=== PATIENT | female | born 1945 | race African-American/Black ===

== ENCOUNTER 2016-11-04 12:08 | Inpatient (IN) | payer MEDICARE, MEDICAID ==
[~2016-11-04] VITALS: Ht 167.6 cm; Wt 67.1 kg
[~2016-11-04 12:08] MED LIST: BUDE6HFA; IPRA4AER; NEBI5TAB3; VALS1TAB31
[2016-11-04] MEDS ORDERED: ALBUTEROL (0.083%) 2.5MG/3ML NEB HHN STA (13:52)
[2016-11-04] MEDS ORDERED: IPRATROPIUM BROMIDE (0.02%) 0.5MG/2.5ML NEB HHN STA (13:52)
[2016-11-04] MEDS ORDERED: MAGNESIUM 2 G PREMIX 50 ML IV STA (13:52)
[2016-11-04] MEDS ORDERED: DEXAMETHASONE 10MG/ML 1ML VIAL IV ONE (14:00)
[2016-11-04 14:11] LABS: BASOPHILS % 1.1 % (0.0-2.0); EOSINOPHILS % 2.5 % (0.0-5.0); HEMATOCRIT. 34.8 % (36.0-48.0); HEMOGLOBIN. 11.3 g/dL (12.0-16.0); LYMPHOCYTES % 37.6 % (20.0-50.0); MEAN CORPUSCULAR VOLUME 91.9 fL (81.0-99.0); MEAN PLATELET VOLUME 7.8 fl (7.4-10.4); MONOCYTES % 7.8 % (2.0-8.0); PLATELET 316 x1000/uL (130-400); RED BLOOD CELL COUNT 3.78 mill/uL (4.2-5.4); RED CELL DISTRIBUTION WIDTH 13.2 % (11.6-14.6)
[2016-11-04 14:18] LABS: INR 1.1; PARTIAL THROMBOPLASTIN TIME 38.2 sec (24.0-34.0); PROTHROMBIN TIME 11.9 sec
[2016-11-04] MEDS ORDERED: ALBUTEROL (0.083%) 2.5MG/3ML NEB ONE (14:21)
[2016-11-04] MEDS ORDERED: IPRATROPIUM BROMIDE (0.02%) 0.5MG/2.5ML NEB ONE (14:22)
[2016-11-04 14:28] LABS: CARBON DIOXIDE 34 mEq/L (21-32); CHLORIDE 98 mEq/L (98-107); TROPONIN I < 0.02 ng/mL (0.00-0.04)
[2016-11-04] MEDS ORDERED: SODIUM CHLORIDE 0.9% 1,000 ML IV ONE (15:56)
[2016-11-04] MEDS ORDERED: LORAZEPAM 0.5MG TABLET PO PRN (16:00)
[2016-11-04] MEDS ORDERED: LEVOFLOXACIN 500MG PREMIX 100 ML IV ONE (16:00)
[2016-11-04] MEDS ORDERED: MAGNESIUM/ALUMINUM HYDROXIDE/SIMETHICONE 30ML UDC PO PRN (16:00)
[2016-11-04] MEDS ORDERED: ONDANSETRON HCL 4MG/2ML VIAL IV PRN (16:00)
[2016-11-04] MEDS ORDERED: DOCUSATE SODIUM 100MG CAPSULE PO PRN (16:00)
[2016-11-04] MEDS ORDERED: CLONIDINE 0.1MG TABLET PO PRN (16:00)
[2016-11-04] MEDS ORDERED: IPRATROPIUM/ALBUTEROL 0.5-3(2.5)MG/3ML NEB INH PRN (16:00)
[2016-11-04 19:11] VITALS: BP 165/63
[2016-11-04 20:00] VITALS: BP 116/67
[2016-11-04] MEDS: ENOXAPARIN 40MG/0.4ML SYR SUBCUT SCH (20:00)
[2016-11-04] MEDS: HYDROCHLOROTHIAZIDE 12.5MG CAPSULE PO SCH ×2 (20:00→20:27)
[2016-11-04] MEDS: NEBIVOLOL HCL 5 MG TABLET PO SCH (20:27)
[2016-11-04] MEDS: ACETAMINOPHEN 325MG TABLET PO PRN (20:27)
[2016-11-04 21:04] LABS: CLARITY URINE CLEAR (CLEAR); COLOR URINE YELLOW (YELLOW); GLUCOSE URINE NEGATIVE (NEGATIVE); KETONES URINE 2+ (NEGATIVE); LEUKOCYTE ESTERASE URINE NEGATIVE (NEGATIVE); NITRITE URINE NEGATIVE (NEGATIVE); OCCULT BLOOD URINE TRACE (NEGATIVE); PROTEIN URINE NEGATIVE (NEGATIVE); SPECIFIC GRAVITY URINE 1.016 (1.005-1.030); UROBILINOGEN URINE 0.2 E.U./dL (0.2-1.0)
[2016-11-04 21:32] VITALS: BP 116/67
[2016-11-04] MEDS ORDERED: AMLO2.5T45 PO (21:38)
[2016-11-04 23:32] LABS: CREATINE KINASE MB FRACTION 5.4 ng/mL (0.5-3.6); TROPONIN I < 0.02 ng/mL (0.00-0.04)
[2016-11-05] VITALS: BP 111/56
[2016-11-05] MEDS: IPRATROPIUM/ALBUTEROL 0.5-3(2.5)MG/3ML NEB HHN SCH ×5 (00:52→22:54)
[2016-11-05 04:00] VITALS: BP 104/45
[2016-11-05] MEDS: BUDESONIDE 0.5MG/2ML NEB HHN SCH ×3 (04:08→22:54)
[2016-11-05 06:45] LABS: CREATINE KINASE MB FRACTION 4.9 ng/mL (0.5-3.6); TROPONIN I < 0.02 ng/mL (0.00-0.04)
[2016-11-05 08:00] VITALS: BP_SYST 131; BP_SYST 132; BP_DIAS 56
[2016-11-05] MEDS: NEBIVOLOL HCL 5 MG TABLET PO SCH (09:34)
[2016-11-05] MEDS: LOSARTAN POTASSIUM 25 MG TABLET PO SCH (09:34)
[2016-11-05] MEDS: HYDROCHLOROTHIAZIDE 12.5MG CAPSULE PO SCH (09:34)
[2016-11-05 12:12] VITALS: BP 105/47
[2016-11-05] MEDS: METHYLPREDNISOLONE SOD SUCC 40 MG/ML VIAL IV SCH ×2 (14:55→22:00)
[2016-11-05 16:30] VITALS: BP 110/62
[2016-11-05 20:00] VITALS: BP 107/49
[2016-11-05] MEDS: ENOXAPARIN 40MG/0.4ML SYR SUBCUT SCH (20:00)
[2016-11-05] MEDS: ACETAMINOPHEN 325MG TABLET PO PRN (23:31)
[2016-11-06] VITALS (25 sets, daily range): BP systolic 82–122; BP diastolic 39–61
[2016-11-06] MEDS: METHYLPREDNISOLONE SOD SUCC 40 MG/ML VIAL IV SCH ×3 (06:00→21:36)
[2016-11-06] MEDS: NEBIVOLOL HCL 5 MG TABLET PO SCH (08:30)
[2016-11-06] MEDS: LOSARTAN POTASSIUM 25 MG TABLET PO SCH (08:30)
[2016-11-06] MEDS: HYDROCHLOROTHIAZIDE 12.5MG CAPSULE PO SCH (08:31)
[2016-11-06] MEDS: BUDESONIDE 0.5MG/2ML NEB HHN SCH ×3 (10:00→20:08)
[2016-11-06] MEDS: IPRATROPIUM/ALBUTEROL 0.5-3(2.5)MG/3ML NEB HHN SCH ×2 (14:25→20:09)
[2016-11-06 15:51] LABS: BG BASE EXCESS 4.4 mmol/L (-2.0-2.0); BG CARBOXYHEMOGLOBIN 1.1 % (0.5-1.5); BG DEOXYHEMOGLOBIN 4.6 % (0.0-5.0); BG FRACTION INSPIRED OXYGEN 28; BG HCO3 ACT 37.8 mmol/L (22.0-26.0); BG METHEMOGLOBIN 0.3 % (0.0-1.5); BG OXYGEN SATURATION 95.3 % (92.0-98.5); BG PCO2 122.3 mmHg (35.0-45.0); BG PH 7.108 (7.350-7.450); BG PO2 86.5 mmHg (75.0-100.0); BG SAMPLE SITE RIGHT BRACHIAL; BG VENT MODE NASAL CANNULA
[2016-11-06 18:31] LABS: BG BASE EXCESS 4.1 mmol/L (-2.0-2.0); BG BILEVEL POS AIRWAY PRESSURE 18/8; BG CARBOXYHEMOGLOBIN 1.2 % (0.5-1.5); BG DEOXYHEMOGLOBIN 4.7 % (0.0-5.0); BG FRACTION INSPIRED OXYGEN 40; BG HCO3 ACT 35.8 mmol/L (22.0-26.0); BG METHEMOGLOBIN 0.3 % (0.0-1.5); BG OXYGEN SATURATION 95.2 % (92.0-98.5); BG OXYHEMOGLOBIN 93.8 % (94.0-97.0); BG PCO2 100.1 mmHg (35.0-45.0); BG PH 7.171 (7.350-7.450); BG PO2 81.8 mmHg (75.0-100.0); BG SAMPLE SITE RIGHT BRACHIAL; BG TOTAL HEMOGLOBIN 12.9 g/dL (12.0-18.0); BG VENT MODE MASK - BIPAP; BG VENT RATE 24 set
[2016-11-06] MEDS: ENOXAPARIN 40MG/0.4ML SYR SUBCUT SCH (20:21)
[2016-11-07] VITALS (79 sets, daily range): BP systolic 92–153; BP diastolic 34–83
[2016-11-07] MEDS: IPRATROPIUM/ALBUTEROL 0.5-3(2.5)MG/3ML NEB HHN SCH ×4 (01:49→20:14)
[2016-11-07] MEDS: METHYLPREDNISOLONE SOD SUCC 40 MG/ML VIAL IV SCH ×3 (05:08→22:01)
[2016-11-07 05:37] LABS: HEMATOCRIT 35.7 % (36.0-48.0); HEMOGLOBIN 11.3 g/dL (12.0-16.0); MEAN CORPUSCULAR HEMOGLOBIN 29.6 pg (28.0-32.0); MEAN CORPUSCULAR VOLUME 93.5 fL (81.0-99.0); PLATELET 351 x1000/uL (130-400); RED BLOOD CELL COUNT 3.82 mill/uL (4.2-5.4); RED CELL DISTRIBUTION WIDTH 13.1 % (11.6-14.6)
[2016-11-07] MEDS ORDERED: INSULIN REGULAR (HUMULIN R) 300UNITS/3ML SUBCUT ONE (07:00)
[2016-11-07] MEDS ORDERED: DEXTROSE 50% WATER 50ML SYRINGE IV ONE (07:00)
[2016-11-07] MEDS ORDERED: INSULIN REGULAR (HUMULIN R) 300UNITS/3ML IV SCH (07:00)
[2016-11-07] MEDS ORDERED: INSULIN REGULAR (HUMULIN R) UD 100 UNITS/ML SYR IV SCH (07:15)
[2016-11-07] MEDS: BUDESONIDE 0.5MG/2ML NEB HHN SCH ×2 (08:03→20:14)
[2016-11-07 08:08] LABS: BG BASE EXCESS 3.6 mmol/L (-2.0-2.0); BG BILEVEL POS AIRWAY PRESSURE ST=18/8; BG CARBOXYHEMOGLOBIN 0.6 % (0.5-1.5); BG FRACTION INSPIRED OXYGEN 40; BG HCO3 ACT 31.5 mmol/L (22.0-26.0); BG METHEMOGLOBIN 0.4 % (0.0-1.5); BG OXYGEN SATURATION 94.9 % (92.0-98.5); BG PCO2 64.7 mmHg (35.0-45.0); BG PH 7.305 (7.350-7.450); BG PO2 78.9 mmHg (75.0-100.0); BG PRESSURE SUPPORT 10; BG SAMPLE SITE RIGHT BRACHIAL; BG TOTAL HEMOGLOBIN 11.7 g/dL (12.0-18.0); BG VENT MODE MASK - BIPAP; BG VENT RATE 24 set
[2016-11-07] MEDS ORDERED: SODIUM CHLORIDE 0.9% 1,000 ML IV ONE (09:00)
[2016-11-07] MEDS: HYDROCHLOROTHIAZIDE 12.5MG CAPSULE PO SCH (09:11)
[2016-11-07 09:33] LABS: PHOSPHORUS 3.3 mg/dL (2.5-4.9)
[2016-11-07] MEDS: ENOXAPARIN 30MG/0.3ML SYR SUBCUT SCH (20:44)
[2016-11-08] VITALS (35 sets, daily range): BP systolic 86–137; BP diastolic 32–71
[2016-11-08] MEDS: IPRATROPIUM/ALBUTEROL 0.5-3(2.5)MG/3ML NEB HHN SCH ×4 (00:37→21:51)
[2016-11-08] MEDS: METHYLPREDNISOLONE SOD SUCC 40 MG/ML VIAL IV SCH ×4 (05:37→21:06)
[2016-11-08] MEDS: HYDROCHLOROTHIAZIDE 12.5MG CAPSULE PO SCH (09:00)
[2016-11-08] MEDS: BUDESONIDE 0.5MG/2ML NEB HHN SCH ×2 (09:24→21:51)
[2016-11-08 11:42] LABS: BG BASE EXCESS 7.5 mmol/L (-2.0-2.0); BG CARBOXYHEMOGLOBIN 0.1 % (0.5-1.5); BG DEOXYHEMOGLOBIN 5.7 % (0.0-5.0); BG FRACTION INSPIRED OXYGEN 28; BG HCO3 ACT 35.2 mmol/L (22.0-26.0); BG METHEMOGLOBIN 0.4 % (0.0-1.5); BG OXYGEN SATURATION 94.3 % (92.0-98.5); BG OXYHEMOGLOBIN 93.8 % (94.0-97.0); BG PCO2 66.6 mmHg (35.0-45.0); BG PH 7.341 (7.350-7.450); BG PO2 75.1 mmHg (75.0-100.0); BG SAMPLE SITE RIGHT BRACHIAL; BG TOTAL HEMOGLOBIN 11.9 g/dL (12.0-18.0); BG VENT MODE NASAL CANNULA
[2016-11-08 15:45] LABS: HEMOGLOBIN. 11.2 g/dL (12.0-16.0); MEAN CORPUSCULAR HEMOGLOBIN 29.7 pg (28.0-32.0); MEAN CORPUSCULAR VOLUME 93.2 fL (81.0-99.0); MEAN PLATELET VOLUME 8.8 fl (7.4-10.4); PLATELET 319 x1000/uL (130-400); RED BLOOD CELL COUNT 3.75 mill/uL (4.2-5.4); RED CELL DISTRIBUTION WIDTH 13.4 % (11.6-14.6)
[2016-11-08 16:10] LABS: PLATELET ESTIMATE NORMAL
[2016-11-08] MEDS: ENOXAPARIN 30MG/0.3ML SYR SUBCUT SCH ×2 (20:00→21:01)
[2016-11-09] VITALS: BP 106/47
[2016-11-09] MEDS: IPRATROPIUM/ALBUTEROL 0.5-3(2.5)MG/3ML NEB HHN SCH ×4 (03:02→20:00)
[2016-11-09 04:00] VITALS: BP 105/49
[2016-11-09] MEDS: METHYLPREDNISOLONE SOD SUCC 40 MG/ML VIAL IV SCH ×3 (05:20→20:54)
[2016-11-09 08:00] VITALS: BP 139/47
[2016-11-09] MEDS: HYDROCHLOROTHIAZIDE 12.5MG CAPSULE PO SCH (09:34)
[2016-11-09 12:00] VITALS: BP 123/48
[2016-11-09 16:00] VITALS: BP 135/44
[2016-11-09] MEDS: BUDESONIDE 0.5MG/2ML NEB HHN SCH (19:55)
[2016-11-09 20:00] VITALS: BP 122/44
[2016-11-09] MEDS: ENOXAPARIN 30MG/0.3ML SYR SUBCUT SCH (20:55)
[2016-11-10] VITALS: BP 111/56
[2016-11-10] MEDS: IPRATROPIUM/ALBUTEROL 0.5-3(2.5)MG/3ML NEB HHN SCH ×3 (00:58→13:47)
[2016-11-10 04:00] VITALS: BP 111/57
[2016-11-10] MEDS: METHYLPREDNISOLONE SOD SUCC 40 MG/ML VIAL IV SCH (06:25)
[2016-11-10 08:07] VITALS: BP 127/68
[2016-11-10] MEDS: HYDROCHLOROTHIAZIDE 12.5MG CAPSULE PO SCH (09:06)
[2016-11-10] MEDS ORDERED: BUDESONIDE 0.5MG/2ML NEB HHN SCH (11:00)
[2016-11-10 12:17] VITALS: BP 109/49
[2016-11-10 16:40] VITALS: BP 117/47
[2016-11-10 17:08] VITALS: BP 117/47
[2016-11-11] MEDS ORDERED: PREDNISONE 20MG TABLET PO SCH (09:00)
== END 2016-11-10 19:30 | DRG 189 ==
LOC: ER 12:11 → 6WST 14:49 → ENRESERV 17:01 → MICUNO 11-06 16:57 → 6WST 11-08 13:24
PROVIDERS: ADMIT Internal Medicine Critical Care Medicine; ATTEND Internal Medicine Critical Care Medicine
PROC: 5A09457 Assistance with Respiratory Ventilation, 24-96 Consecutive Hours, Continuous Positive Airway Pressure (ICD-10-PCS; principal; 2016-11-06)
DX: J96.01 Acute respiratory failure with hypoxia (principal); G93.40 Encephalopathy, unspecified; J44.1 Chronic obstructive pulmonary disease with (acute) exacerbation; N17.9 Acute kidney failure, unspecified; E87.5 Hyperkalemia; I10 Essential (primary) hypertension; D64.9 Anemia, unspecified; E78.00 Pure hypercholesterolemia, unspecified; M79.604 Pain in right leg; M79.605 Pain in left leg; R00.1 Bradycardia, unspecified; R47.1 Dysarthria and anarthria; Z85.858 Personal history of malignant neoplasm of other endocrine glands; Z87.442 Personal history of urinary calculi; Z79.899 Other long term (current) drug therapy; T44.7X1A Poisoning by beta-adrenoreceptor antagonists, accidental (unintentional), initial encounter
CPT/HCPCS: 36415; 36600; 70450; 70551; 71010; 80048; 80053; 81001; 82375; 82553; 82805; 82962; 83690; 83735; 83880; 84100; 84443; 84484; 85025; 85027; 85610; 85730; 93005; 93306; 93970; 94640; 94660; 94664; 96365; 96366; 96375; 97116; 97162; 97167; 97168; 97530; 97535; 99291; A6261; J1100; J1650; J1815; J2920; J3475; J7030; J7040; J7611; J7620; J7626